=== PATIENT | female | born 1955 | race Caucasian/White ===

== ENCOUNTER 2019-02-04 09:34 | Observation (INO) | payer OTHER ==
[2019-02-04 10:20] LABS: ADD MAN DIFF? NO
[2019-02-04 10:25] LABS: WHITE BLOOD COUNT 7.2 10^3/ul (4.8-10.8)
[2019-02-04 10:25] LABS: BASOPHILS % 0.4 % (0.0-2.0); EOSINOPHILS # 0.1 10^3/ul (0.0-0.5); EOSINOPHILS % 1.4 % (0.0-7.0); HEMOGLOBIN 13.9 g/dl (12.0-16.0); LYMPHOCYTES % 27.9 % (15.0-51.0); MEAN CORPUSCULAR HEMOGLOBIN 27.9 pg (29.0-33.0); MEAN CORPUSCULAR HGB CONC 34.8 g/dl (32.0-37.0); MEAN CORPUSCULAR VOLUME 80.2 fl (82.0-101.0); MEAN PLATELET VOLUME 11.5 fl (7.4-10.4); MONOCYTE # 0.5 10^3/ul (0.3-0.9); MONOCYTES % 6.6 % (0.0-11.0); NEUTROPHIL # 4.5 10^3/ul (1.6-7.5); NEUTROPHILS % 63.4 % (39.0-77.0); PLATELET COUNT 237 10^3/UL (140-415); RED BLOOD COUNT 4.99 10^6/ul (4.20-5.40); RED CELL DISTRIBUTION WIDTH 11.8 % (11.5-14.5)
[2019-02-04 10:59] LABS: ANION GAP 11 (5-13); BLOOD UREA NITROGEN 7 mg/dl (7-20); CALCIUM 9.3 mg/dl (8.4-10.2); CARBON DIOXIDE 25 mmol/L (21-31); CHLORIDE 96 mmol/L (97-110); CREATININE 0.42 mg/dl (0.44-1.00); Estimated GFR > 60 mL/min (>60); GLUCOSE 108 mg/dl (70-220); POTASSIUM 3.8 mmol/L (3.5-5.1); SODIUM 132 mmol/L (135-144)
[2019-02-04 11:10] LABS: TROPONIN-I < 0.012 ng/ml (0.000-0.120)
[2019-02-04] MEDS: ASPIRIN 325 MG TAB PO (12:23)
[2019-02-04] MEDS: SOD CHLORIDE 0.45% 1,000 ML IV (12:55)
[2019-02-04] MEDS ORDERED: NITROGLYCERIN (SL) 0.4 MG TAB SL (13:00)
[2019-02-04] MEDS ORDERED: hydrALAzine 20 MG INJ IV (13:00)
[2019-02-04] MEDS ORDERED: HYDROCODONE/APAP (5/325) TAB PO (13:00)
[2019-02-04] MEDS ORDERED: NACL 0.9% 3 ML SYG IV (13:00)
[2019-02-04] MEDS ORDERED: ACETAMINOPHEN 325 MG TAB PO (13:00)
[2019-02-04] MEDS ORDERED: DOCUSATE SODIUM 100 MG CAP PO (13:00)
[2019-02-04] MEDS ORDERED: LORAZEPAM 2 MG INJ IV (13:00)
[2019-02-04] MEDS ORDERED: MAGNESIUM HYDROXIDE 30ML CUP PO (13:00)
[2019-02-04] MEDS ORDERED: ONDANSETRON 4 MG INJ IV (13:00)
[2019-02-04] MEDS ORDERED: ALBUTEROL/IPRATROPIUM (NEB) 3 ML AMP HHN (13:00)
[2019-02-04] MEDS ORDERED: morphine 2 MG INJ IV (13:00)
[2019-02-04 14:17] LABS: CREATINE KINASE 101 IU/L (23-200)
[2019-02-04 14:30] LABS: CK INDEX 1.3; CK-MB 1.32 ng/ml (0.0-2.4); TROPONIN-I < 0.012 ng/ml (0.000-0.120)
[2019-02-04 14:36] LABS: FREE T4 (FREE THYROXINE) 0.93 ng/dl (0.78-2.44)
[2019-02-04 16:41] LABS: CREATINE KINASE 102 IU/L (23-200)
[2019-02-04 16:53] LABS: CK INDEX 1.3; CK-MB 1.37 ng/ml (0.0-2.4); TROPONIN-I < 0.012 ng/ml (0.000-0.120)
[2019-02-04] MEDS: HEPARIN 5,000 UNIT/1 ML VIAL SC (21:32)
[2019-02-05 01:03] LABS: CREATINE KINASE 98 IU/L (23-200)
[2019-02-05 01:16] LABS: CK INDEX 1.5; CK-MB 1.43 ng/ml (0.0-2.4); TROPONIN-I < 0.012 ng/ml (0.000-0.120)
[2019-02-05] MEDS: SOD CHLORIDE 0.45% 1,000 ML IV ×2 (02:56→15:35)
[2019-02-05 06:43] LABS: ADD MAN DIFF? NO
[2019-02-05 06:51] LABS: WHITE BLOOD COUNT 6.5 10^3/ul (4.8-10.8)
[2019-02-05 06:51] LABS: BASOPHILS % 0.5 % (0.0-2.0); EOSINOPHILS # 0.2 10^3/ul (0.0-0.5); EOSINOPHILS % 3.6 % (0.0-7.0); HEMATOCRIT 38.7 % (37.0-47.0); HEMOGLOBIN 13.5 g/dl (12.0-16.0); LYMPHOCYTES # 2.4 10^3/ul (0.8-2.9); LYMPHOCYTES % 36.9 % (15.0-51.0); MEAN CORPUSCULAR HEMOGLOBIN 27.6 pg (29.0-33.0); MEAN CORPUSCULAR HGB CONC 34.9 g/dl (32.0-37.0); MEAN CORPUSCULAR VOLUME 79.1 fl (82.0-101.0); MEAN PLATELET VOLUME 11.9 fl (7.4-10.4); MONOCYTE # 0.5 10^3/ul (0.3-0.9); NEUTROPHIL # 3.3 10^3/ul (1.6-7.5); NEUTROPHILS % 50.8 % (39.0-77.0); PLATELET COUNT 225 10^3/UL (140-415); RED BLOOD COUNT 4.89 10^6/ul (4.20-5.40); RED CELL DISTRIBUTION WIDTH 12.1 % (11.5-14.5)
[2019-02-05 07:10] LABS: HEMOGLOBIN A1C 5.2 % (0-5.9)
[2019-02-05 07:22] LABS: ANION GAP 10 (5-13); BLOOD UREA NITROGEN 14 mg/dl (7-20); CALCIUM 9.4 mg/dl (8.4-10.2); CARBON DIOXIDE 24 mmol/L (21-31); CHLORIDE 99 mmol/L (97-110); CREATININE 0.49 mg/dl (0.44-1.00); Estimated GFR > 60 mL/min (>60); GLUCOSE 89 mg/dl (70-220); MAGNESIUM 1.7 mg/dl (1.7-2.5); PHOSPHORUS 3.8 mg/dl (2.5-4.9); POTASSIUM 3.8 mmol/L (3.5-5.1); SODIUM 133 mmol/L (135-144)
[2019-02-05 07:27] LABS: CHOL/HDL RATIO 3.4 RATIO; HDL CHOLESTEROL 59 mg/dl (35-98); LDL CHOLESTEROL,CALCULATED 117 mg/dl; TRIGLYCERIDES 131 mg/dl (0-149)
[2019-02-05 07:27] LABS: CHOLESTEROL 202 mg/dl (100-200)
[2019-02-05] MEDS: ASPIRIN (EC) 325 MG TAB PO (08:19)
[2019-02-05] MEDS: AMLODIPINE 5 MG TAB PO (08:20)
[2019-02-05] MEDS: HEPARIN 5,000 UNIT/1 ML VIAL SC (08:39)
== END 2019-02-05 18:01 | disposition home or self-care (01) ==
LOC: E/R 09:34 → 6WM 11:49
DX: R07.9 Chest pain, unspecified (principal); I10 Essential (primary) hypertension; E78.00 Pure hypercholesterolemia, unspecified; H40.9 Unspecified glaucoma; E78.5 Hyperlipidemia, unspecified
CPT/HCPCS: 36415; 71045; 80048; 80061; 82550; 82553; 83036; 83735; 84100; 84439; 84443; 84484; 85025; 93005; 93306; 99285-25; G0378